=== PATIENT | female | born 1960 | race African-American/Black ===

== ENCOUNTER 2017-04-01 21:44 | Emergency (ER) | payer OTHER, MEDICAID ==
[~2017-04-01] VITALS: Ht 167.6 cm; Wt 90.0 kg
[2017-04-01] MEDS ORDERED: HYDROCODONE/ACETAMINOPHEN 5/325MG TABLET PO ONE (22:45)
[2017-04-02 00:15] VITALS: BP 136/78
== END 2017-04-02 00:15 | disposition home or self-care (01) ==
LOC: ER 22:08
DX: S93.401A Sprain of unspecified ligament of right ankle, initial encounter (principal); W10.8XXA Fall (on) (from) other stairs and steps, initial encounter; Y93.89 Activity, other specified; Y92.89 Other specified places as the place of occurrence of the external cause; Y99.8 Other external cause status
CPT/HCPCS: 73562; 73590; 73610; 73630; 99284

== ENCOUNTER 2017-04-02 14:32 | Emergency (ER) | payer OTHER, MEDICAID ==
[~2017-04-02] VITALS: Ht 165.1 cm; Wt 82.0 kg
[2017-04-02] MEDS ORDERED: KETOROLAC 60MG/2ML VIAL IM ONE (15:15)
[2017-04-02 16:50] VITALS: BP 126/82
== END 2017-04-02 18:30 | disposition home or self-care (01) ==
LOC: ER 18:29
DX: S82.891A Other fracture of right lower leg, initial encounter for closed fracture (principal); W50.2XXA Accidental twist by another person, initial encounter; Y93.89 Activity, other specified; Y92.89 Other specified places as the place of occurrence of the external cause; Y99.8 Other external cause status
CPT/HCPCS: 29515; 96372; 99283; J1885